=== PATIENT | male | born 1980 | race Caucasian/White ===

== ENCOUNTER → 2017-04-15 | Outpatient (CLI) | payer BC | LOC: COL.RAD 07:58 | DX: S43.085S Other dislocation of left shoulder joint, sequela (principal); S43.492A Other sprain of left shoulder joint, initial encounter; S43.432A Superior glenoid labrum lesion of left shoulder, initial encounter; S42.295A Other nondisplaced fracture of upper end of left humerus, initial encounter for closed fracture; M75.112 Incomplete rotator cuff tear or rupture of left shoulder, not specified as traumatic | CPT/HCPCS: A9585; Q9967 ==